=== PATIENT | male | born 1940 | race Caucasian/White ===

== ENCOUNTER 2023-07-30 08:16 | Day surgery (SDC) | payer MEDICARE, OTHER ==
[2023-07-24 15:44] LABS: BASOPHILS # (AUTO) 0.1 X10'3 (0-0.2); BASOPHILS % (AUTO) 1.3 % (0-1); EOSINOPHILS # (AUTO) 0.1 X10'3 (0-0.9); EOSINOPHILS % (AUTO) 2.3 % (0-6); LYMPHOCYTES # (AUTO) 1.4 X10'3 (1.1-4.8); LYMPHOCYTES % (AUTO) 25.6 % (21-51); MEAN CORPUSCULAR HEMOGLOBIN 34.7 PG (27.0-31.0); MEAN CORPUSCULAR HGB CONC 34.6 g/dL (33.0-36.5); MEAN CORPUSCULAR VOLUME 100.2 FL (78-98); MONOCYTES # (AUTO) 0.5 X10'3 (0-0.9); MONOCYTES % (AUTO) 9.4 % (2-12); NEUTROPHILS # (AUTO) 3.3 X10'3 (1.8-7.7); NEUTROPHILS % (AUTO) 61.4 % (42-75); PRE OP HEMATOCRIT 30.9 % (42.0-52.0); PRE OP PLATELET COUNT 248 X10'3 (140-440); PRE OP WHITE BLOOD COUNT 5.3 10'3 (4.8-10.8); RED BLOOD COUNT 3.09 X10'6 (4.70-6.10); RED CELL DISTRIBUTION WIDTH 14.2 % (11.5-14.5)
[2023-07-24 15:46] LABS: PRE OP HEMOGLOBIN 10.7 g/dL (14.0-17.9)
[2023-07-24 15:59] LABS: ALBUMIN 3.9 G/DL (3.4-5.0); ALKALINE PHOSPHATASE 69 IU/L (46-116); BLOOD UREA NITROGEN 36 MG/DL (7-18); BUN/CREATININE RATIO 21.4 (10.0-20.0); CALCIUM 9.4 MG/DL (8.5-10.1); CHLORIDE 103 MMOL/L (99-107); CREATININE 1.68 MG/DL (0.60-1.10); PRE OP ALT 28 U/L (30-65); PRE OP ANION GAP 8 (8-16); PRE OP AST 14 U/L (10-37); PRE OP BILIRUB, TOTAL 0.4 MG/DL (0.0-1.0); PRE OP GLUCOSE 164 MG/DL (70-104); PRE OP POTASSIUM 4.6 MMOL/L (3.4-5.1); PRE OP SODIUM 139 MMOL/L (135-145); TOTAL CARBON DIOXIDE 28.3 MMOL/L (24-32); TOTAL PROTEIN 7.9 G/DL (6.4-8.2); eGFR 39 ML/MIN
[2023-07-30] VITALS (7 sets, daily range): BP systolic 104–141; BP diastolic 49–73; PULSE 16–71; RESP 9–16; TEMP 98; O2SAT 98–100
[~2023-07-30] VITALS: Ht 180.3 cm; Wt 78.8 kg
[~2023-07-30 08:16] MED LIST: AMLO5TAB16 PO; ASPI-1071 PO; CLOP75TA34 PO; GLIM4TAB7 PO; HYDR12.55 PO; LOSA100T58 PO; METF-1203 PO
[2023-07-30] MEDS: ringers solution, lacted 1,000 ML IV SCH (09:08)
[2023-07-30] MEDS: famotidine 20mg tablet PO ONE (09:08)
[2023-07-30] MEDS: cefazolin 2gm/D5W 100mL 100 ML IV ONE (09:09)
[2023-07-30] MEDS ORDERED: fentaNYL/PF 50MCG/1 ML 2ML syringe ONE (09:31)
[2023-07-30] MEDS ORDERED: midazolam 1 mg/ML 2ml injection ONE (09:32)
[2023-07-30] MEDS: BUPIVAcaine 2.5mg/ml inj 50ml vial (contains preservative) ONE (09:50)
[2023-07-30] MEDS ORDERED: propofol inj 20 ML IV ONE (09:50)
[2023-07-30] MEDS: LIDOcaine 1% 30ml preserv. free vial ONE (09:51)
[2023-07-30] MEDS ORDERED: acetaminophen 1,000mg/100ml IV 100 ML IV ONE (10:10)
[2023-07-30] MEDS ORDERED: morphine 4 MG/ML inj SYRINge IV PRN (10:10)
[2023-07-30] MEDS ORDERED: meperidine/PF 25mg/ml syringe IV PRN ×3 (10:10)
[2023-07-30] MEDS ORDERED: ondansetron/PF 4mg/2ml inj IV PRN (10:10)
[2023-07-30] MEDS ORDERED: morphine 2 MG/ML inj. syringe IV PRN (10:10)
[2023-07-30] MEDS ORDERED: ringers solution, lacted 1,000 ML IV SCH (10:10)
[2023-07-30] MEDS ORDERED: proCHLORperazine 10 MG/2 ml inj IV PRN (10:10)
== END 2023-07-30 10:39 | disposition home or self-care (01) ==
LOC: PAS 08:16
PROVIDERS: ATTEND Orthopaedic Surgery Hand Surgery
DX: G56.03 Carpal tunnel syndrome, bilateral upper limbs (principal); I10 Essential (primary) hypertension; I25.119 Atherosclerotic heart disease of native coronary artery with unspecified angina pectoris; E11.9 Type 2 diabetes mellitus without complications; I25.2 Old myocardial infarction; Z79.01 Long term (current) use of anticoagulants; Z79.02 Long term (current) use of antithrombotics/antiplatelets; Z79.82 Long term (current) use of aspirin; Z79.84 Long term (current) use of oral hypoglycemic drugs; Z79.899 Other long term (current) drug therapy; Z98.890 Other specified postprocedural states
CPT/HCPCS: 26055; 36415; 64721; 80053; 82948; 85025; A4215; A6449; J0690; J2001; J2250; J2704; J3010; J3490; J7030; J7120; Z7506; Z7512; Z7610